=== PATIENT | female | born 1980 | race Caucasian/White ===

== ENCOUNTER → 2018-12-26 | Outpatient (CLI) | payer OTHER | LOC: MC.RAD 08:17 | DX: Z12.31 Encounter for screening mammogram for malignant neoplasm of breast (principal); N64.89 Other specified disorders of breast ==

== ENCOUNTER → 2019-01-02 | Outpatient (CLI) | payer OTHER | LOC: MC.RAD 13:45 | DX: N64.89 Other specified disorders of breast (principal) ==

== ENCOUNTER → 2019-01-10 | Outpatient (CLI) | payer OTHER | LOC: MC.RAD 09:50 | DX: N64.89 Other specified disorders of breast (principal) | CPT/HCPCS: G0279 ==

== ENCOUNTER → 2020-01-11 | Outpatient (CLI) | payer OTHER | LOC: MC.RAD 14:07 | DX: Z12.31 Encounter for screening mammogram for malignant neoplasm of breast (principal) ==

== ENCOUNTER → 2020-12-31 | Outpatient (CLI) | payer OTHER ==
[~2020-12-31] MED LIST: FLEXERIL 1010 MG/TAB PO
== END ==
LOC: MC.RAD 14:02
DX: Z12.31 Encounter for screening mammogram for malignant neoplasm of breast (principal); Z00.00 Encounter for general adult medical examination without abnormal findings

== ENCOUNTER 2021-01-01 20:29 | Emergency (ER) | payer OTHER ==
[~2021-01-01] VITALS: Ht 157.5 cm; Wt 58.6 kg
[2021-01-01 21:15] VITALS: TEMP 98.8
[2021-01-01 21:35] LABS: COLLECTION METHOD CLEAN CATCH
[2021-01-01 21:43] LABS: MUCOUS Present /lpf; PH 5 (5-8); SQUAMOUS EPITHELIAL 0-2 /hpf; URINE APPEARANCE Clear; URINE BACTERIA Occasional /hpf; URINE BILIRUBIN Negative (NEGATIVE); URINE BLOOD Negative (NEGATIVE); URINE COLOR Yellow; URINE GLUCOSE Negative (NEGATIVE); URINE KETONE Negative (NEGATIVE); URINE LEUKOCYTE ESTERASE Negative (NEGATIVE); URINE NITRATE Negative (NEGATIVE); URINE PROTEIN(semi-quant) Negative (NEGATIVE); URINE RBC 0-2 /hpf; URINE UROBILINOGEN Negative (NEGATIVE)
[2021-01-01 22:10] LABS: BASO % 0.2 % (0.0-2.0); EOS # 0.1 (0.0-0.7); EOS % 0.7 % (0-4.0); GRAN # 8.6 (1.4-6.5); HEMATOCRIT 40.3 % (37.0-47.0); HEMOGLOBIN 14.1 g/dl (12.5-16.0); LYMPH # 2.6 (1.2-3.4); LYMPH % 21.4 % (20.0-51.0); MEAN CELL VOLUME 95 fl (80.0-100.0); MEAN CORPUSCULAR HEMOGLOBIN 33 pg (27.0-31.0); MEAN CORPUSCULAR HGB CONC 35 g/dl (33.0-37.0); MEAN PLATELET VOLUME 9.8 fl (7.4-10.4); MONO # 0.8 (0.1-0.6); MONO % 6.5 % (1.7-9.3); PLATELET COUNT 197 K/mm3 (130-400); RED BLOOD COUNT 4.24 M/mm3 (4.10-5.30); REDCELL DISTRIBUTION WIDTH-CV 12.8 % (11.5-14.5)
[2021-01-01 22:22] LABS: ALBUMIN 4.4 gm/dL (3.5-5.0); BILIRUBIN,TOTAL 0.4 mg/dL (0.0-1.0); CALCIUM 9.6 mg/dL (8.4-10.2); CREATININE, serum 0.56 (0.52-1.25); POTASSIUM 3.8 mmol/L (3.4-5.0); TOTAL PROTEIN 7.9 gm/dL (6.4-8.2)
[2021-01-01] MEDS ORDERED: FLEXERIL 1010 MG/TAB PO (23:42)
[2021-01-01 23:57] VITALS: BP 102/79; PULSE 103
== END 2021-01-01 23:55 | disposition home or self-care (01) ==
LOC: COL.ER 20:29
PROVIDERS: Physician Assistant
DX: S39.012A Strain of muscle, fascia and tendon of lower back, initial encounter (principal); F17.210 Nicotine dependence, cigarettes, uncomplicated; X58.XXXA Exposure to other specified factors, initial encounter
CPT/HCPCS: J1885; Q9967

== ENCOUNTER → 2022-03-26 | Outpatient (CLI) | payer BC | LOC: MC.RAD 01-01 09:00 | DX: Z12.31 Encounter for screening mammogram for malignant neoplasm of breast (principal) ==

== ENCOUNTER → 2023-10-13 | Outpatient (CLI) | payer BC | LOC: MC.RAD 15:43 | DX: Z12.31 Encounter for screening mammogram for malignant neoplasm of breast (principal); N63.21 Unspecified lump in the left breast, upper outer quadrant ==

== ENCOUNTER 2023-11-18 10:15 | Day surgery (SDC) | payer BC ==
[~2023-11-18] VITALS: Ht 157.5 cm; Wt 64.2 kg
[2023-11-18 09:50] VITALS: BP 114/72; PULSE 77; TEMP 97.8
--- NOTE | 2023-11-18 10:10 | NUR ---
PATIENT RETURNS FROM THE PACU AFTER HAVING BLOCK PLACED FOR POST-OP PAIN CONTROL. ROOM AIR SATS 97%.
[~2023-11-18 10:15] MED LIST changes: +LR 1,000 ML IV SCH; +Lidocaine PF 2% (20 MG/ML) 5 ML VIAL ONE; +Midazolam 2 MG/2 ML VIAL ONE; -NORCO 325 MG-51 TAB PO; +NS 10 ML IV ONE; +Ondansetron 4 MG/2 ML VIAL ONE; +dexAMETHasone 10 MG/ML VIAL ONE; +fentaNYL 50 MCG/ML 2 ML VIAL ONE
[2023-11-18] MEDS ORDERED: Morphine 4 MG/ML VIAL IV PRN ×2 (10:30→12:15)
[2023-11-18] MEDS ORDERED: droPERidol 2.5 MG/ML 2 ML VIAL IV PRN (10:30)
[2023-11-18] MEDS ORDERED: hydrALAZINE 20 MG/ML 1 ML VIAL IV PRN (10:30)
[2023-11-18] MEDS ORDERED: fentaNYL 50 MCG/ML 2 ML VIAL IV PRN (10:30)
[2023-11-18] MEDS ORDERED: Ondansetron 4 MG/2 ML VIAL IV PRN ×2 (10:30→12:15)
[2023-11-18] MEDS ORDERED: Meperidine 50 MG/ML 1 ML VIAL IV PRN (10:30)
[2023-11-18] MEDS ORDERED: HYDROmorphone 2 MG/1 ML VIAL IV PRN (10:30)
[2023-11-18] MEDS ORDERED: fentaNYL 50 MCG/ML 2 ML VIAL ONE (10:31)
[2023-11-18] MEDS ORDERED: Lidocaine PF 2% (20 MG/ML) 5 ML VIAL SQ ONE (10:36)
[2023-11-18] MEDS ORDERED: ePHEDrine 50 MG/ML VIAL ONE (11:11)
[2023-11-18] MEDS ORDERED: NORCO 325 MG-51 TAB PO (12:06)
[2023-11-18 12:35] VITALS: BP 117/77; PULSE 85; TEMP 97.6
--- NOTE | 2023-11-18 12:35 | NUR ---
The patient arrived back to [facility] from the recovery room at this time. The patient reports some discomfort in her left axillary region at this time. The patient agrees to try some cranberry juice. Post operative vital signs were started at this time. The patient has oxygen place at 2L per nasal cannula. The patient's dressing to her left breast/axillary appears clean, dry and intact. Call light is within reach. The patiet's mother and friend are at her bedside.
[2023-11-18 12:50] VITALS: BP 117/84; PULSE 84
--- NOTE | 2023-11-18 12:50 | NUR ---
The patient appears to be tolerating the juice well and denies wanting anything further to eat or drink at this time. The patient's oxygen was weaned down to 1L per nasal cannula. Friend and family remain at her bedside.
[2023-11-18 13:05] VITALS: BP 118/86; PULSE 88
--- NOTE | 2023-11-18 13:05 | NUR ---
The patient ambulated to the bathroom with the stand by assistance of one nurse and appeared to tolerate the activity well. The patient voided withtout difficulty. The patient was weaned to room air and appears to be tolerating it well.
[2023-11-18 13:20] VITALS: BP 116/82; PULSE 84
--- NOTE | 2023-11-18 13:25 | NUR ---
The patient's oxygen saturation continues to maintain at 96% on room air and she verbalized a desire to be discharged home. The nurse instructed the patient to get dressed and notify the staff when she is ready to be escorted out.
--- NOTE | 2023-11-18 13:35 | NUR ---
Discharge instructions were reviewed with the patient and her friend at this time. They both verbalized understanding and have no questions for the nurse at this time. The patient is dressed and ready to be escorted out.
--- NOTE | 2023-11-18 13:45 | NUR ---
The patient was escorted out via wheelchair to a private vehicle by NILTON Osorio. The patient's belongings and discharge paperwork were sent with her. The patient's friend, Lindsey, is present to drive her home.
[2023-11-18 14:17] VITALS: BP 117/71; PULSE 83; TEMP 97.2
== END 2023-11-18 13:45 | disposition home or self-care (01) ==
LOC: SDCO 10:15
DX: C50.412 Malignant neoplasm of upper-outer quadrant of left female breast (principal); F17.210 Nicotine dependence, cigarettes, uncomplicated; Z17.0 Estrogen receptor positive status [ER+]; Z90.3 Acquired absence of stomach [part of]; G89.18 Other acute postprocedural pain
CPT/HCPCS: A4648; J0690; J1100; J2250; J2405; J2704; J2795; J3010; J7120

== ENCOUNTER → 2023-11-18 | Outpatient (CLI) | payer BC ==
[~2023-11-18] MED LIST changes: +NORCO 325 MG-51 TAB PO
== END ==
LOC: COL.RAD 06:56
DX: C50.412 Malignant neoplasm of upper-outer quadrant of left female breast (principal)
CPT/HCPCS: A9520-JZ

== ENCOUNTER 2023-12-16 07:38 | Day surgery (SDC) | payer BC ==
[2023-12-16] VITALS (8 sets, daily range): BP systolic 109–129; BP diastolic 66–90; PULSE 58–78; TEMP 97.1–98
[~2023-12-16] VITALS: Ht 157.5 cm; Wt 64.6 kg
[~2023-12-16 07:38] MED LIST changes: -Lidocaine PF 2% (20 MG/ML) 5 ML VIAL ONE; -Midazolam 2 MG/2 ML VIAL ONE; +NORCO 325 MG-51 TAB PO; -NS 10 ML IV ONE; -Ondansetron 4 MG/2 ML VIAL ONE; -dexAMETHasone 10 MG/ML VIAL ONE; -fentaNYL 50 MCG/ML 2 ML VIAL ONE
[2023-12-16] MEDS ORDERED: Ondansetron 4 MG/2 ML VIAL IV ONE (08:34)
[2023-12-16] MEDS ORDERED: Lidocaine PF 2% (20 MG/ML) 5 ML VIAL IV ONE (08:34)
[2023-12-16] MEDS ORDERED: Midazolam 2 MG/2 ML VIAL IV ONE (08:34)
[2023-12-16] MEDS ORDERED: Phenylephrine 10 MG/ML VIAL IV ONE (08:34)
[2023-12-16] MEDS ORDERED: fentaNYL 50 MCG/ML 2 ML VIAL IV ONE (08:34)
[2023-12-16] MEDS ORDERED: NS 10 ML VIAL IV ONE (08:34)
[2023-12-16] MEDS ORDERED: dexAMETHasone 10 MG/ML VIAL IV ONE (11:23)
[2023-12-16] MEDS ORDERED: Lidocaine PF 2% (20 MG/ML) 5 ML VIAL SQ ONE ×2 (11:32)
[2023-12-16] MEDS ORDERED: droPERidol 2.5 MG/ML 2 ML VIAL IV PRN (12:00)
[2023-12-16] MEDS ORDERED: Meperidine 50 MG/ML 1 ML VIAL IV PRN (12:00)
[2023-12-16] MEDS ORDERED: Ondansetron 4 MG/2 ML VIAL IV PRN ×2 (12:00→12:45)
[2023-12-16] MEDS ORDERED: fentaNYL 50 MCG/ML 2 ML VIAL IV PRN (12:00)
[2023-12-16] MEDS ORDERED: hydrALAZINE 20 MG/ML 1 ML VIAL IV PRN (12:00)
[2023-12-16] MEDS ORDERED: Morphine 4 MG/ML VIAL IV PRN (12:45)
--- NOTE | 2023-12-16 12:55 | NUR ---
PATIENT RETURNED TO ROOM 7 VIA CART, ALERT AND ORIENTED X3. PATIENT IS PLEASANT. DENIES PAIN, NAUSEA AND SHORTNESS OF BREATH. BREATHING REGULAR AND UNLABORED ON ROOM AIR. SKIN WARM AND DRY. PULSE REGULAR. NURSE HANDOFF COMPLETED IN ROOM. SEE CHART FOR VITAL SIGNS. VISIBLE MEDIPORE TAPE TO RIGHT CHEST. VERY SMALL SPOT OF DRAINAGE PRESENT, DRESSING INTACT. BANDAID PRESENT ABOVE MEDIPORE TAPE ON RIGHT CHEST- CLEAN, DRY AND INTACT. VISIBLE MEDIPORE TAPE TO LEFT SIDE OF CHEST. DRESSING IS CLEAN, DRY AND INTACT. PATIENT HAD CRANBERRY JUICE AND APPLESAUCE. BOTH FOOD AND DRINK TOLERATED WELL. CALL LIGHT IN REACH.
--- NOTE | 2023-12-16 14:22 | NUR ---
1320: PATIENT AMBULATED TO RESTROOM WITH STEADY GAIT AND VOIDED WITHOUT DIFFICULTY. 1341: DISCHARGE TEACHING COMPLETED WITH PRINTED EDUCATION AND INSTRUCTIONS SENT HOME WITH PATIENT. FOLLOW UP APPOINTMENT DATE, TIME AND LOCATION COMMUNICATED TO PATIENT. PATIENT VERBALIZED UNDERSTANDING. 1408: PATIENT DENIES PAIN. IV REMOVED. GAUZE AND COBAN PLACED OVER SITE. NO NEW DRAINAGE TO RIGHT CHEST MEDIPORE DRESSING. LEFT CHEST MEDIPORE DRESSING CLEAN, DRY AND INTACT. 1422: PATIENT DISCHARGED HOME WITH MOTHER, SHRUTHI, TRANSPORT.
== END 2023-12-16 14:22 | disposition home or self-care (01) ==
LOC: SDCO 07:38
DX: C50.412 Malignant neoplasm of upper-outer quadrant of left female breast (principal); N60.32 Fibrosclerosis of left breast; N64.1 Fat necrosis of breast; N61.0 Mastitis without abscess; R92.0 Mammographic microcalcification found on diagnostic imaging of breast; F17.210 Nicotine dependence, cigarettes, uncomplicated
CPT/HCPCS: A4648; C1788; J0690; J1100; J1644; J2250; J2371; J2405; J2704; J3010; J7120

== ENCOUNTER 2024-08-07 07:12 | Day surgery (SDC) | payer BC ==
[~2024-08-07] VITALS: Ht 157.5 cm; Wt 63.2 kg
[~2024-08-07 07:12] MED LIST changes: +Ondansetron 4 MG/2 ML VIAL IV PRN
[2024-08-07] MEDS ORDERED: COMPAZINE 110 MG/TAB PO (07:48)
[2024-08-07] MEDS ORDERED: TAMOXIFEN CITRA20 MG PO (07:48)
[2024-08-07] MEDS ORDERED: NEURONTIN300 MG/CAP PO (07:49)
[2024-08-07 07:57] VITALS: BP 109/80; PULSE 95; TEMP 97.2
[2024-08-07 09:35] VITALS: BP 93/70; PULSE 95; TEMP 97.1
[2024-08-07 09:50] VITALS: BP 94/70; PULSE 75
[2024-08-07 10:05] VITALS: BP 108/71; PULSE 74
--- NOTE | 2024-08-07 13:52 | NUR ---
0935: PT TO [facility] 2 FROM ENDO SUITE. AMBULATED FROM CART TO RECLINER X2 ASSIST. REPORT RECEIVED FROM ENDO NURSE. PT ALERT AND ORIENTED. DENIES PAIN OR NAUSEA. REQUESTING JUICE. RESTING IN RECLINER. CALL LIGHT IN REACH. NO FAMILY AT BEDSIDE. 0950: PT ALERT AND ORIENTED. TOLERATING JUICE. DENIES PAIN AND NAUSEA. IV DC'S AT THIS TIME. RESTING IN RECLINER. PT EITAN ASSISTANCE WITH DRESSING. NO FAMILY AT BEDSIDE. 1000: DR. AVINA IN TO SPEAK WITH PT. 1005: DISCHARGE EDUCATION DONE AT THIS TIME. PT STATED UNDERSTANDING OF DC INSTRUCTIONS. DC PAPERWORK GIVEN TO PT. 1010: PT AMBULATED INDEPENDENTLY FROM RECLINER TO WHEELCHAIR. PT OFF UNIT AT THIS TIME. PT DC TO HOME WITH FAMILY PER PERSONAL VEHICLE.
== END 2024-08-07 10:10 | disposition home or self-care (01) ==
LOC: SDCO 07:12
DX: Z12.11 Encounter for screening for malignant neoplasm of colon (principal); C7A.8 Other malignant neuroendocrine tumors; D12.2 Benign neoplasm of ascending colon; K62.89 Other specified diseases of anus and rectum; C50.919 Malignant neoplasm of unspecified site of unspecified female breast; F17.210 Nicotine dependence, cigarettes, uncomplicated
CPT/HCPCS: J2704; J7120